=== PATIENT | male | born 2000 | race Caucasian/White ===

== ENCOUNTER 2022-05-02 17:42 | Emergency (ER) | payer OTHER ==
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
[2022-05-02 19:42] VITALS: BP 142/70; TEMP 97; O2SAT 97
== END 2022-05-02 19:38 | disposition home or self-care (01) ==
LOC: ER 17:42
DX: S80.01XA Contusion of right knee, initial encounter (principal); V49.40XA Driver injured in collision with unspecified motor vehicles in traffic accident, initial encounter
CPT/HCPCS: 71046; 99282

== ENCOUNTER 2023-09-10 03:18 | Emergency (ER) | payer OTHER ==
[2023-09-10] MEDS ORDERED: CEFAZOLIN SODIUM 1 GM/VIAL ONE (04:51)
[2023-09-10] MEDS ORDERED: KETOROLAC 30 MG/ML INJ ONE (05:02)
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
--- NOTE | 2023-09-10 06:36 | EDPHYS ---
Physician Documentation [facility] Name: Donald Vega Age: 23 yrs Sex: Male : 2000 Arrival Date: 09/10/2023 Time: 03:18 Bed 14 Private MD: ED Physician Mateus Garcia HPI: 09/09 06:38 This 23 yrs old Male presents to ER via Wheelchair with complaints of Back Pain, Fall bo1 Injury. 06:38 The symptoms are located in the right ankle/LE. Onset: The symptoms/episode bo1 began/occurred suddenly, \\T\\ 12 mn. Foot got caught in a "gap.". Historical: - Allergies: 04:11 No Known Allergies; vc1 - Home Meds: 04:11 None [Active]; vc1 - PMHx: 04:11 None; vc1 - PSHx: 04:11 None; vc1 - Immunization history:: Client reports receiving the 2nd dose of the Covid vaccine. - Infectious Disease History:: Denies. - Social history:: Smoking status: Reported history of juuling and/or vaping. ROS: 06:34 Constitutional: Negative for fever, chills, and weight loss, bo1 06:34 MS/extremity: Positive for injury or acute deformity, abrasion, of the right ankle, 06:34 Skin: Positive for abrasion(s), Exam: 06:39 Musculoskeletal/extremity: Extremities: grossly normal except: noted in the right ankle bo1 (lateral) aspect; abrasion at distal foot/ankle tip of fibula: abrasion, ROM: Limited secondary to pain, Circulation is intact in all extremities. Sensation intact. Compartment Syndrome exam of affected extremity: is normal. 06:39 Skin: Abrasion at proximal foot/distal ankle. 06:42 Constitutional: This is a well developed, well nourished patient who is awake, alert, bo1 and in acute distress. Vital Signs: 04:00 BP 133 / 83; Pulse 90; Resp 17 S; Pulse Ox 98% on R/A; ha1 04:06 BP 125 / 83; Pulse 90; Resp 18; Temp 97; Pulse Ox 100% ; Pain 5/10; vc1 05:00 BP 121 / 69; Pulse 92; Resp 17 S; Pulse Ox 98% on R/A; ha1 06:57 BP 118 / 79; Pulse 87; Resp 18; Temp 98; Pulse Ox 99% on R/A; Pain 3/10; rg5 04:06 Pain Scale: Adult vc1 06:57 Pain Scale: Adult rg5 Procedures: 06:33 Splinting: Splint applied to right ankle/LE using robert wrap, Orthoglass splint. bo1 Reduction:. MDM: 04:40 Patient medically screened. bo1 06:34 Differential diagnosis: Fracture sprain. bo1 06:41 Data reviewed: radiologic studies, plain films. bo1 09/09 04:43 Order name: Ankle Right 3 View XRAY bo1 09/09 04:40 Order name: Saline Lock; Complete Time: 04:55 bo1 09/09 05:40 Order name: Wound Care; Complete Time: 05:45 bo1 09/09 05:40 Order name: Wound dressing; Complete Time: 05:45 bo1 Administered Medications: 04:54 Drug: ceFAZolin IVPB 1 grams IVPB once Route: IVPB; Site: right antecubital; rg5 05:20 Follow up: Response: No adverse reaction; IV Status: Completed infusion; IV Intake: [id number] 05:07 Drug: Ketorolac IVP 30 mg IVP once Route: IVP; Site: right antecubital; ha1 05:30 Follow up: Response: No adverse reaction; Marked relief of symptoms; Pain is decreased ha1 Disposition Summary: 09/10/23 06:36 Discharge Ordered Notes: Location: Home bo1 Condition: Stable bo1 Problem: new bo1 Symptoms: are unchanged bo1 Diagnosis - Nondisplaced fracture of lateral malleolus of right fibula bo1 Followup: bo1 - With: Private Physician - When: Upon discharge from the Emergency Department - Reason: Discharge Instructions: - Discharge Summary Sheet bo1 - Ankle Fracture bo1 Forms: - Medication Reconciliation Form bo1 - Antibiotic Education bo1 - Prescription Opioid Use bo1 - Patient Portal Instructions bo1 - Leadership Thank You Letter bo1 Prescriptions: - Hydrocodone-Acetaminophen 7.5-325 mg Oral Tablet - take 1 tablet ORAL route every 6 hours As needed; 12 tablet; Refills: 0, bo1 Product Selection Permitted Signatures: Dispatcher [employer] Viola Latif RN RN vc1 Shaniqua Jones RN RN ha1 Mateus Garcia MD MD bo1 Jonathan Lerma, ROBEL RN rg5
[2023-09-10 07:35] VITALS: BP 118/79; TEMP 98; O2SAT 99
--- NOTE | 2023-09-10 09:54 | RAD REPORT ---
EXAM DESCRIPTION: Ankle Right 3 View CLINICAL HISTORY: SWELLING COMPARISON: None. FINDINGS: 3 views of the right ankle. Acute minimally displaced fracture of the distal right f ibula. Normal osseous mineralization. Talar dome has appropriate contour. IMPRESSION: Acute minimally displaced fracture of the distal right fibula. Electronically signed by: Jose L Mcelroy DO 09/10/2023 07:12 AM CDT RP [id number] Due to temporary technical issues with the PACS/Fluency reporting system, reports are being signed by the in house radiologist without review as a courtesy to ensure prompt reporting. The interpreting r adiologist is fully responsible for the content of the report.
== END 2023-09-10 06:58 | disposition home or self-care (01) ==
LOC: ER 03:18
PROC: 2W3LX1Z Immobilization of Right Lower Extremity using Splint (ICD-10-PCS; principal; 2023-09-10)
DX: S82.64XA Nondisplaced fracture of lateral malleolus of right fibula, initial encounter for closed fracture (principal)
CPT/HCPCS: 96365; 73610; 96375; 99285; 29515; J0690

== ENCOUNTER 2024-04-08 14:12 | Emergency (ER) | payer OTHER, SELFPAY ==
[2024-04-08 15:32] LABS: SARS-CoV-2 Antigen CONTROL BLUE LINE VIS/BG OK; SARS-CoV-2 Antigen Rapid Res Negative (Negative)
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
--- NOTE | 2024-04-08 17:27 | EDPHYS ---
Physician Documentation [facility] Name: Donald Vega Age: 23 yrs Sex: Male : 2000 Arrival Date: 04/08/2024 Time: 14:12 Bed 8 Private MD: ED Physician Jayro Rahman HPI: 04/08 15:58 This 23 yrs old Male presents to ER via Ambulatory with complaints of Cold Symptoms - rn Covid test. 15:58 The patient or guardian reports cough, flu symptoms. Onset: The symptoms/episode rn began/occurred yesterday. Severity of symptoms: At their worst the symptoms were mild, in the emergency department the symptoms are unchanged. Modifying factors: The symptoms are alleviated by nothing, the symptoms are aggravated by nothing. Associated signs and symptoms: Pertinent positives: fever, rhinorrhea, sore throat. The patient has not experienced similar symptoms in the past. Historical: - Allergies: 14:42 mushrooms; cm10 14:42 cats; cm10 - Home Meds: 14:42 None [Active]; cm10 - PMHx: 14:42 None; cm10 - PSHx: 14:42 None; cm10 - Immunization history:: Adult Immunizations unknown. - Infectious Disease History:: Denies. - Social history:: Smoking status: Patient/guardian denies using tobacco. - Family history:: not pertinent. - Hospitalizations: : No recent hospitalization is reported. ROS: 15:58 Constitutional: Negative for fever, chills, and weight loss, ENT: Positive for rn congestion Cardiovascular: Negative for chest pain, palpitations, and edema, Respiratory: Positive for cough, negative for shortness of breath Abdomen/GI: Negative for abdominal pain, nausea, vomiting, diarrhea, and constipation, MS/Extremity: Negative for injury and deformity, Skin: Negative for injury, rash, and discoloration, Neuro: Negative for headache, weakness, numbness, tingling, and seizure, Exam: 15:58 Constitutional: This is a well developed, well nourished patient who is awake, alert, rn and in no acute distress. Head/Face: Normocephalic, atraumatic. ENT: Mild pharyngeal erythema, no stridor Cardiovascular: Regular rate and rhythm. No pulse deficits. Respiratory: Mild tachypnea, no retractions MS/ Extremity: Pulses equal, no cyanosis. Neurovascular intact. Full, normal range of motion. Equal circumference. Neuro: Awake and alert, GCS 15, normal gait Vital Signs: 14:40 BP 125 / 95; Pulse 95; Resp 19; Temp 98.7(O); Pulse Ox 96% on R/A; Weight 92.99 kg; cm10 Height 5 ft. 10 in. ; Pain 8/10; 15:30 BP 130 / 78; Pulse 88; Resp 15; Pulse Ox 98% ; bp 16:30 BP 133 / 84; Pulse 96; Resp 16; Pulse Ox 99% ; bp 17:30 BP 132 / 79; Pulse 96; Resp 15; Pulse Ox 100% ; bp 14:40 Body Mass Index 29.41 (92.99 kg, 177.8 cm) cm10 14:40 Pain Scale: Adult cm10 MDM: 14:27 Medical Screening Exam initiated rn 17:26 Differential Diagnosis: Bronchitis Influenza Upper Respiratory Infection Viral Syndrome rn Pneumonia. Data reviewed: vital signs, nurses notes, radiologic studies, plain films, and as a result, I will discharge patient. Counseling: I had a detailed discussion with the patient and/or guardian regarding the historical points, exam findings, and any diagnostic results supporting the discharge/admit diagnosis, lab results, radiology results, the need for outpatient follow up, to return to the emergency department if symptoms worsen or persist or if there are any questions or concerns that arise at home. Special discussion: I discussed with the patient/guardian in detail that at this point there is no indication for admission to the hospital. It is understood, however, that if the symptoms persist or worsen the patient needs to return immediately for re-evaluation. 04/08 14:27 Order name: SARS RAPID; Complete Time: 15:40 rn 04/08 14:27 Order name: Flu; Complete Time: 15:40 rn 04/08 14:42 Order name: XRAY Chest Pa And Lat (2 Views); Complete Time: 16:55 rn Administered Medications: 17:40 Drug: LevOfloxacin PO 500 mg PO once Route: PO; bp 17:48 Follow up: Response: No adverse reaction bp Disposition Summary: 04/08/24 17:27 Discharge Ordered Notes: Location: Home rn Problem: new rn Symptoms: have improved rn Condition: Stable rn Diagnosis - Pneumonia, unspecified organism rn Followup: rn - With: Private Physician - When: As needed - Reason: Recheck today's complaints, Re-evaluation by your physician Discharge Instructions: - Discharge Summary Sheet rn - Community-Acquired Pneumonia, Adult rn Forms: - Medication Reconciliation Form rn - Antibiotic international trade manager - Prescription Opioid Use rn - Patient Portal Instructions rn - Leadership Thank You Letter rn - Work release form hb Prescriptions: - levofloxacin 500 mg Oral tablet - take 1 tablet ORAL route once daily for 7 days; 7 tablet; Refills: 0, Product rn Selection Permitted Signatures: Dispatcher [employer] Jayro Mcdaniel MD MD rn Peltier, Brian RN RN Adriana Flores RN RN cm10 Corrections: (The following items were deleted from the chart) 14:42 14:42 Allergies: No Known Allergies; cm10 cm10
--- NOTE | 2024-04-08 17:27 | ER ---
Nurse's Notes [facility] Name: Donald Vega Age: 23 yrs Sex: Male : 2000 Arrival Date: 04/08/2024 Time: 14:12 Bed 8 Private MD: Diagnosis: Pneumonia, unspecified organism Presentation: 04/08 14:40 Chief complaint: Patient states: cough, sore throat, loss of smell onset 1 week ago. cm10 Coronavirus screen: Client denies travel out of the [place] in the last 14 days. Ebola Screen: Patient denies travel to an Ebola-affected area in the 21 days before illness onset. Initial Sepsis Screen: Does the patient meet any 2 criteria? HR > 90 bpm. Does the patient have a suspected source of infection? No. Patient's initial sepsis screen is negative. Risk Assessment: Do you want to hurt yourself or someone else? Patient reports no desire to harm self or others. Onset of symptoms was April 08, 2024. 14:40 Method Of Arrival: Ambulatory 10 14:40 Acuity: KATHERINE 4 cm10 Triage Assessment: 14:42 General: Appears uncomfortable, ill, Behavior is calm, cooperative. Neuro: No deficits cm10 noted. Level of Consciousness is awake, alert, obeys commands, Oriented to person, place, time, situation, Appropriate for age. Respiratory: No deficits noted. Airway is patent Respiratory effort is even, unlabored, Respiratory pattern is regular, symmetrical. Historical: - Allergies: 14:42 mushrooms; cm10 14:42 cats; cm10 - Home Meds: 14:42 None [Active]; cm10 - PMHx: 14:42 None; cm10 - PSHx: 14:42 None; cm10 - Immunization history:: Adult Immunizations unknown. - Infectious Disease History:: Denies. - Social history:: Smoking status: Patient/guardian denies using tobacco. - Family history:: not pertinent. - Hospitalizations: : No recent hospitalization is reported. Screenin:13 [facility] ED Fall Risk Assessment (Adult) History of falling in the last 3 months, ld1 including since admission No falls in past 3 months (0 pts) Confusion or Disorientation No (0 pts) Intoxicated or Sedated No (0 pts) Impaired Gait No (0 pts) Mobility Assist Device Used No (0 pt) Altered Elimination No (0 pt) Score/Fall Risk Level 0 - 2 = Low Risk Oriented to surroundings, Hourly rounding (assess needs \T\ fall precautionary measures) done. Abuse screen: Denies threats or abuse. Denies injuries from another. Nutritional screening: No deficits noted. Tuberculosis screening: No symptoms or risk factors identified. Assessment: 15:13 General: Appears in no apparent distress. comfortable, Behavior is calm, cooperative, ld1 appropriate for age. Pain: Denies pain. Neuro: Level of Consciousness is awake, alert, obeys commands, Oriented to person, place, time, situation. Cardiovascular: Capillary refill < 3 seconds Patient's skin is warm and dry. Respiratory: Airway is patent Respiratory effort is even, unlabored. GI: Abdomen is flat, non-distended. : No signs and/or symptoms were reported regarding the genitourinary system. EENT: No signs and/or symptoms were reported regarding the EENT system. Derm: No signs and/or symptoms reported regarding the dermatologic system. Musculoskeletal: No signs and/or symptoms reported regarding the musculoskeletal system. 16:44 Reassessment: Patient appears in no apparent distress at this time. No changes from ld1 previously documented assessment. Patient and/or family updated on plan of care and expected duration. Pain level reassessed. Patient is alert, oriented x 3, equal unlabored respirations, skin warm/dry/pink. 17:47 Reassessment: No changes from previously documented assessment. Patient is alert, bp oriented x 3, equal unlabored respirations, skin warm/dry/pink. Vital Signs: 14:40 BP 125 / 95; Pulse 95; Resp 19; Temp 98.7(O); Pulse Ox 96% on R/A; Weight 92.99 kg; cm10 Height 5 ft. 10 in. ; Pain 8/10; 15:30 BP 130 / 78; Pulse 88; Resp 15; Pulse Ox 98% ; bp 16:30 BP 133 / 84; Pulse 96; Resp 16; Pulse Ox 99% ; bp 17:30 BP 132 / 79; Pulse 96; Resp 15; Pulse Ox 100% ; bp 14:40 Body Mass Index 29.41 (92.99 kg, 177.8 cm) cm10 14:40 Pain Scale: Adult cm10 ED Course: 14:16 Patient arrived in ED. ra3 14:27 Jayro Rahman MD is Attending Physician. rn 14:42 Triage completed. cm10 14:42 Arm band placed on right wrist. Patient placed in an exam room, on a stretcher. cm10 14:43 Flu Sent. cm10 14:43 SARS RAPID Sent. cm10 14:43 COVID swab sent to lab. Flu and/or RSV swab sent to lab. cm10 15:02 XRAY Chest Pa And Lat (2 Views) In Process Unspecified. EDMS 15:13 Machelle Luu, RN is Primary Nurse. ld1 15:13 Patient has correct armband on for positive identification. Placed in gown. Bed in low ld1 position. Call light in reach. Side rails up X2. quality assurance monitor chassis on. Pulse ox on. NIBP on. Door closed. Noise minimized. Warm blanket given. 15:13 No provider procedures requiring assistance completed. ld1 17:48 Patient did not have IV access during this emergency room visit. bp Administered Medications: 17:40 Drug: LevOfloxacin PO 500 mg PO once Route: PO; bp 17:48 Follow up: Response: No adverse reaction bp Medication: 15:13 VIS not applicable for this client. ld1 Outcome: 17:27 Discharge ordered by . rn 17:48 Discharged to home ambulatory, bp 17:48 Condition: stable 17:48 Discharge instructions given to patient, Instructed on discharge instructions, follow up and referral plans. medication usage, Demonstrated understanding of instructions, follow-up care, medications, Prescriptions given X 1, 17:48 Patient left the ED. bp Signatures: Dispatcher [employer] EDWI Jayro Rahman MD MD rn Peltier, Brian RN RN bp Machelle Luu, ROBEL RN ld1 Adriana Sawyer RN RN cm10 Cynthia Jacob ra3 Corrections: (The following items were deleted from the chart) 14:42 14:42 Allergies: No Known Allergies; cm10 cm10
[2024-04-08] MEDS ORDERED: levoFLOXacin 250 MG TAB ONE (17:35)
[2024-04-08 17:55] VITALS: TEMP 98.7
[2024-04-08 17:59] VITALS: BP 132/79; O2SAT 100
== END 2024-04-08 17:48 | disposition home or self-care (01) ==
LOC: ER 14:12
DX: J18.9 Pneumonia, unspecified organism (principal); Z11.52 Encounter for screening for COVID-19
CPT/HCPCS: 36415; 71046; 87804; 87811; 99284